=== PATIENT | female | born 1955 | race Caucasian/White ===

== ENCOUNTER 2016-10-11 16:37 | Emergency (ER) | payer OTHER ==
[2016-10-11] MEDS ORDERED: AMOXicillin 250 MG CAP ONE (16:53)
[2016-10-11] MEDS ORDERED: Triple Antibiotic Oint 1 GM Packet ONE (17:58)
== END 2016-10-11 18:31 | disposition home or self-care (01) ==
LOC: BURERS 16:37
DX: S71.111A Laceration without foreign body, right thigh, initial encounter (principal); S61.552A Open bite of left wrist, initial encounter; E03.9 Hypothyroidism, unspecified; I10 Essential (primary) hypertension; F17.210 Nicotine dependence, cigarettes, uncomplicated; W54.0XXA Bitten by dog, initial encounter
CPT/HCPCS: 12002; 90471